=== PATIENT | male | born 1935 | race Hispanic/Latino ===

== ENCOUNTER 2021-06-10 06:11 | Observation (INO) | payer MEDICARE ==
[2021-06-03 13:22] LABS: Hematocrit 42.3 % (35.5-45.6); Hemoglobin 14.2 gm/dl (11.8-15.2); Mean Corpuscular HGB Conc 34 % (32-34); Mean Corpuscular Volume 99 fl (84-94); Platelet Count 160 K/mm3 (140-440); Red Blood Count 4.28 M/mm3 (3.65-5.03); Red Cell Distribution Width 14.5 % (13.2-15.2)
[2021-06-03 13:34] LABS: Alanine Aminotransferase 34 units/L (7-56); BUN/Creatinine Ratio 17; Blood Urea Nitrogen 17 mg/dL (9-20); Hemolysis Index 11
--- NOTE | 2021-06-03 14:27 | Anesthesia Consultation ---
Anesthesia Consult and Med Hx Date of service: 06/10/21 - Airway Anesthetic Teeth Evaluation: Dentures (upper and lower) ROM Head & Neck: Adequate Mental/Hyoid Distance: Adequate Mallampati Class: Class II Intubation Access Assessment: Probably Good - Pulmonary Exam CTA: Yes - Cardiac Exam Cardiac Exam: No Murmur (irregular rhythm) - Pre-Operative Health Status ASA Pre-Surgery Classification: ASA3 Proposed Anesthetic Plan: General - Pulmonary Hx Smoking: No Hx Respiratory Symptoms: No Hx Sleep Apnea: No ([facility] PRE SCREEN HIGH RISK) - Cardiovascular System Hx Hypertension: Yes Hx Heart Attack/AMI: No Hx Percutaneous Transluminal Coronary Angioplasty (PTCA): No Hx Cardia Arrhythmia: Yes (a-fib on coumadin (will hold after 06/04/21)) Hx Pacemaker: Yes Hx Internal Defibrillator: No - Central Nervous System CVA: No - Endocrine Hx Renal Disease: No Hx Liver Disease: No (remote hx hepatitis; resolved) Hx Insulin Dependent Diabetes: No Hx Non-Insulin Dependent Diabetes: No Hx Thyroid Disease: No - Other Systems Hx Cancer: Yes (prior hx prostate ca) - Additional Comments Anesthesia Medical History Comments: No hx anesthetic complications. Had preop c ardiology eval and pacemaker interrogation recently. Records requested.
[~2021-06-10 06:11] MED LIST: ACETAMINOPHEN 325 MG TAB ONE; ACETAMINOPHEN 500 MG TAB PO SCH; GENTAMICIN/NS 80 MG/100 ML 100 ML IV SCH; SODIUM CHLORIDE 0.9% 1000 ML 1,000 ML IV SCH; VANCOMYCIN 1,250 MG in SODIUM CHLORIDE 0.9% 250ML 250 ML IV NR
[2021-06-10] MEDS ORDERED: ACETAMINOPHEN 325 MG TAB PO ONE (07:00)
[2021-06-10] MEDS ORDERED: MIDAZOLAM 2 MG/2 ML INJ IV PRN (07:00)
[2021-06-10 07:11] LABS: INR 1.02 (0.87-1.13); Partial Thromboplastin Time 26.4 Sec. (24.2-36.6)
[2021-06-10 07:12] LABS: Calcium 8.8 mg/dL (8.4-10.2)
[2021-06-10] MEDS ORDERED: ONDANSETRON 4 MG/2 ML INJ IV PRN ×2 (07:34→10:16)
[2021-06-10] MEDS ORDERED: HYDROmorphone 1 MG/1 ML INJ IV PRN ×2 (07:34)
--- NOTE | 2021-06-10 07:34 | Anesthesia Day of Surgery ---
Anesthesia Day of Surgery - Day of Surgery Patient Examined: Yes Patient H&P Reviewed: Yes Patient is NPO: Yes
[2021-06-10] MEDS ORDERED: LIDOCAINE MPF (2%) 20 MG/1 ML VIAL 5 ML ONE (07:36)
[2021-06-10] MEDS ORDERED: propofoL 200 MG/20 ML VIAL IV ONE (07:38)
[2021-06-10] MEDS ORDERED: BUPIVACAINE/PF (0.5%) 5 MG/1 ML 30 ML VIAL INFILTRATI ONE (07:46)
[2021-06-10] MEDS ORDERED: SODIUM CHLORIDE P/F VIAL 10 ML 20 ML ONE (07:46)
[2021-06-10] MEDS ORDERED: SODIUM CHLORIDE 0.9% 500 ML 500 ML ONE (07:47)
[2021-06-10] MEDS ORDERED: rifAMPin 600 MG VIAL ONE (07:47)
[2021-06-10] MEDS ORDERED: GENTAMICIN 40 MG/ML VIAL 2 ML ONE (07:47)
[2021-06-10] MEDS ORDERED: NEOMY 40 MG/POLYMYXIN B 200,000 UNITS/ML (GU) AMPULE IR ONE ×3 (07:47→09:49)
[2021-06-10] MEDS ORDERED: SODIUM CHLORIDE P/F VIAL 10 ML 10 ML ONE (07:48)
[2021-06-10] MEDS ORDERED: SODIUM CHLORIDE 0.9% 50 ML ONE (07:51)
[2021-06-10] MEDS ORDERED: VANCOMYCIN/NS 1 GM/250 ML 1 GM/250 ML BAG IV SCH (08:00)
[2021-06-10] MEDS ORDERED: PHENYLEPHRINE/NS 1,000 MCG/10 ML SYRINGE (OR USE) IV ONE (08:39)
[2021-06-10] MEDS ORDERED: dexAMETHasone 20 MG/5 ML VIAL ONE (08:43)
[2021-06-10] MEDS ORDERED: ePHEDrine SULFATE 50 MG/1 ML INJ ONE (09:09)
[2021-06-10] MEDS ORDERED: BUPIVACAINE/PF (0.5%) 5 MG/1 ML 10 ML VIAL INFILTRATI ONE (09:50)
[2021-06-10] MEDS ORDERED: SODIUM CHLORIDE 0.9% P/F 10 ML VIAL INFILTRATI ONE (09:50)
[2021-06-10] MEDS ORDERED: SODIUM CHLORIDE 0.9% IRR 1,500 ML BOTTLE IR ONE (09:50)
[2021-06-10] MEDS ORDERED: GENTAMICIN 40 MG/ML VIAL 2 ML IV ONE (09:51)
[2021-06-10] MEDS ORDERED: SODIUM CHLORIDE 0.9% 500 ML IVPB IV ONE (09:53)
[2021-06-10] MEDS ORDERED: rifAMPin 600 MG VIAL IV ONE (09:54)
[2021-06-10] MEDS ORDERED: ACETAMINOPHEN 325 MG TAB PO PRN (10:16)
[2021-06-10] MEDS ORDERED: MORPHINE 4 MG/1 ML INJ IV PRN (10:16)
[2021-06-10] MEDS ORDERED: NALOXONE 0.4 MG/1 ML INJ IV PRN (10:16)
--- NOTE | 2021-06-10 10:16 | Short Stay Summary ---
Short Stay Documentation Date of service: 06/10/21 - History H&P: obtained from office - Allergies and Medications Current Medications: Allergies No Known Allergies Allergy (Verified 06/02/21 17:01) Home Medications Medication Instructions Recorded Confirmed Last Taken Type Lovastatin [Altoprev] 40 mg PO DAILY 06/03/21 06/03/21 Unknown History Metoprolol [Lopressor] 100 mg PO TID 06/03/21 06/03/21 Unknown History Warfarin [Coumadin] 5 mg PO QDAY 06/03/21 06/03/21 Unknown History Active Medications Hydromorphone HCl (Hydromorphone 1 Mg/1 Ml Inj) 0.25 mg IV Q10MIN PRN PRN Reason: Pain, Moderate (4-6) Stop: 06/10/21 23:00 Hydromorphone HCl (Hydromorphone 1 Mg/1 Ml Inj) 0.5 mg IV Q10MIN PRN PRN Reason: Pain , Severe (7-10) Stop: 06/10/21 23:00 Sodium Chloride (Nacl 0.9% 1000 Ml) 1,000 mls @ 100 mls/hr IV DIRECT QUIANA Stop: 06/10/21 23:59 Last Admin: 06/10/21 07:00 Dose: 100 mls/hr Documented by: Gentamicin Sulfate/Sodium Chloride (Gentamicin/Ns 80 Mg/100 Ml) 100 mls @ 200 mls/hr IV PREOP QUIANA Stop: 06/10/21 20:00 Vancomycin HCl 1,250 mg/ (Sodium Chloride) 275 mls @ 166.667 mls/hr IV PREOP NR Stop: 06/10/21 20:00 Midazolam HCl (Midazolam 2 Mg/2 Ml Inj) 1 mg IV PREOP PRN PRN Reason: Anxiety Stop: 06/10/21 23:00 Last Admin: 06/10/21 07:37 Dose: 1 mg Documented by: Ondansetron HCl (Ondansetron 4 Mg/2 Ml Inj) 4 mg IV ONCE PRN PRN Reason: Nausea And Vomiting Stop: 06/10/21 12:00 - Brief post op/procedure progress note Date of procedure: 06/10/21 Pre-op diagnosis: impotence Post-op diagnosis: same Procedure: ipp (coloplast) Anesthesia: GETA Surgeon: LORENA COUCH Estimated blood loss: minimal Specimen disposition: to lab (scrotal skin) Condition: stable - Hospital course Hospital course: pt has bactrim,norco, post op info at home 1. Remove Shepard catheter 2. Remove dressing 3. Discharge home today - Disposition Condition at discharge: Stable Disposition: 01 HOME / SELF CARE / HOMELESS Short Stay Discharge Plan Follow up with: JORGE ALBERTO BATEMAN MD [Primary Care Provider] - 7 Days
--- NOTE | 2021-06-10 10:59 | Operative Report ---
DATE OF SURGERY: 06/10/2021 PREOPERATIVE DIAGNOSIS: Erectile dysfunction. POSTOPERATIVE DIAGNOSIS: Erectile dysfunction. PROCEDURES: Cystoscopy, insertion of inflatable penile prosthesis (Coloplast 22 cm implant), scrotoplasty, pharmacologic injection into the corporal bodies. SURGEON: Sumanth Patel MD LATHE OPERATOR CONTACT LENS: Tosin Feliz. ANESTHESIA: General. ESTIMATED BLOOD LOSS: Minimal. FLUIDS: Crystalloid. COMPLICATIONS: No complications. INDICATIONS: This is an 85-year-old gentleman known to our service with a history of erectile dysfunction and prostate cancer. I had a long discussion regarding treatment options. The patient reviewed all options, wants to proceed with surgical intervention. He received his cardiac clearance from Dr. Aguayo, presents now for surgical intervention. DESCRIPTION OF PROCEDURE: The patient was taken to the operative suite, placed in the supine position. After adequate general anesthesia, prepped and draped in a sterile fashion. Attempt at Shepard catheter initially was unsuccessful due to a blockage. Flexible cystoscopy was performed. The patient was noted to have a high riding bladder neck. I was able to negotiate a 0.035 Glidewire followed by a 16-Arabic [place] tip catheter over the prostate without difficulty. Next, attention was taken to the corporal bodies. A 60 mL of dilute 0.25% Marcaine was injected. No plaque could be appreciated. No curvature. A transscrotal incision was made with a Bovie. Sharp dissection was taken down to the corporal bodies, 2-0 Vicryl stay sutures were placed in the corporal bodies. Corporotomies were made bilaterally. Gentle dilation with a measuring tool was performed. Measurements revealed a total of 20 cm. Therefore, a 20 cm Coloplast Titan was prepped, 125 mL reservoir was prepped and placed in the retropubic space via the right external ring, 100 mL of fluid was placed in the reservoir. No leak could be appreciated. Cylinders were prepped, placed in the corporal bodies with the aid of the Ulises needle, excellent seating, corporotomies were closed with 2-0 Vicryl in a running fashion. Insufflation revealed an excellent cosmetic appearance. There was cracking of the corporal bodies consistent with no recent erections. Pump and reservoir was connected with the quick click connection system. Throughout the procedure, copious irrigation was performed. Adequate hemostasis was achieved. Pump was placed in the dependent portion of the scrotum. A 2-0 Vicryl pursestring suture was used to secure there as well as a 2-0 Vicryl to close the dartos layer. Redundant scrotal skin was excised and sent for routine pathologic evaluation. Scrotal skin was closed with a 2-0 Vicryl in interrupted fashion. Collodion, mummy wrap was placed. The patient tolerated the procedure well, was extubated and taken to recovery room. He will be observed overnight. Tosin Feliz was present at the bedside to assist throughout the procedure. TID: [id number] RECEIPT: [id number] AYAD/JUNIOR
[2021-06-10] MEDS ORDERED: SODIUM CHLORIDE 0.45% 1000 ML 1,000 ML IV SCH (11:00)
--- NOTE | 2021-06-10 14:24 | Consultation ---
History of Present Illness - Reason for Consult Consult date: 06/10/21 Atrial fibrillation with RVR Requesting physician: LORENA COUCH - History of Present Illness Patient is an 85-year-old male with past medical history of atrial fibrillation, hyperlipidemia who presents to the hospital for Coloplast IPP which was done with no complications and currently resting in the room postop. I was asked to see the patient for management of atrial fibrillation while the patient was in the hospital. Apart from surgical incision pain he denies any other complaints. He denies shortness of breath nausea vomiting or diarrhea he denies any dizziness. Reports compliance to his medication for which he says that he takes warfarin and metoprolol at home. Past History Past Medical History: atrial fib, hyperlipidemia Past Surgical History: Other Social history: lives with family Family history: no significant family history Medications and Allergies Allergies Allergy/AdvReac Type Severity Reaction Status Date / Time No Known Allergies Allergy Verified 06/02/21 17:01 Home Medications Medication Instructions Recorded Confirmed Last Taken Type Lovastatin [Altoprev] 40 mg PO DAILY 06/03/21 06/03/21 Unknown History Metoprolol [Lopressor] 100 mg PO TID 06/03/21 06/03/21 Unknown History Warfarin [Coumadin] 5 mg PO QDAY 06/03/21 06/03/21 Unknown History Active Meds: Active Medications Acetaminophen (Acetaminophen 325 Mg Tab) 650 mg PO Q4H PRN PRN Reason: Pain MILD(1-3)/Fever >100.5/WASHBURN Hydrocodone Bitart/Acetaminophen (Hydrocodone/Acetaminophen 5-325 Mg Tab) 2 each PO Q6H PRN PRN Reason: Pain, Moderate (4-6) Atorvastatin Calcium (Atorvastatin 10 Mg Tab) 10 mg PO QHS QUIANA Hydromorphone HCl (Hydromorphone 1 Mg/1 Ml Inj) 0.25 mg IV Q10MIN PRN PRN Reason: Pain, Moderate (4-6) Stop: 06/10/21 23:00 Hydromorphone HCl (Hydromorphone 1 Mg/1 Ml Inj) 0.5 mg IV Q10MIN PRN PRN Reason: Pain , Severe (7-10) Stop: 06/10/21 23:00 Sodium Chloride (Nacl 0.9% 1000 Ml) 1,000 mls @ 100 mls/hr IV DIRECT QUIANA Stop: 06/10/21 23:59 Last Admin: 06/10/21 07:00 Dose: 100 mls/hr Documented by: Gentamicin Sulfate/Sodium Chloride (Gentamicin/Ns 80 Mg/100 Ml) 100 mls @ 200 mls/hr IV PREOP QUIANA Stop: 06/10/21 20:00 Vancomycin HCl 1,250 mg/ (Sodium Chloride) 275 mls @ 166.667 mls/hr IV PREOP NR Stop: 06/10/21 20:00 Sodium Chloride (Nacl 0.45% 1000 Ml) 1,000 mls @ 75 mls/hr IV DIRECT QUIANA Cefazolin Sodium (Ancef/Ns 1 Gm/50 Ml) 1 gm in 50 mls @ 100 mls/hr IV Q8H QUIANA; Protocol Metoprolol Tartrate (Metoprolol Tartrate 100 Mg Tab) 100 mg PO TID QUIANA Midazolam HCl (Midazolam 2 Mg/2 Ml Inj) 1 mg IV PREOP PRN PRN Reason: Anxiety Stop: 06/10/21 23:00 Last Admin: 06/10/21 07:37 Dose: 1 mg Documented by: Morphine Sulfate (Morphine 4 Mg/1 Ml Inj) 4 mg IV Q4H PRN PRN Reason: Pain , Severe (7-10) Naloxone HCl (Naloxone 0.4 Mg/1 Ml Inj) 0.1 mg IV Q2MIN PRN PRN Reason: Res Rate </= 8 or 02 SAT < 92% Ondansetron HCl (Ondansetron 4 Mg/2 Ml Inj) 4 mg IV Q8H PRN PRN Reason: Nausea And Vomiting Sodium Chloride (Sodium Chloride 0.9% 10 Ml Flush Syringe) 10 ml IV BID QUIANA Sodium Chloride (Sodium Chloride 0.9% 10 Ml Flush Syringe) 10 ml IV PRN PRN PRN Reason: LINE FLUSH Zolpidem Tartrate (Zolpidem 5 Mg Tab) 5 mg PO QHS PRN PRN Reason: Insomnia Review of Systems All systems: negative Cardiovascular: no chest pain, no orthopnea, no palpitations, no rapid/irregular heart beat, no edema Exam - Physical Exam Narrative exam: VITAL SIGNS: Reviewed. GENERAL: The patient appears normally developed, Vital signs as documented. HEAD: No signs of head trauma. EYES: Pupils are equal. Extraocular motions intact. EARS: Hearing grossly intact. MOUTH: Oropharynx is normal. NECK: No adenopathy, no JVD. CHEST: Chest with clear breath sounds bilaterally. No wheezes, rales, or rhonchi. CARDIAC: Regular rate and rhythm. S1 and S2, without murmurs, gallops, or rubs. VASCULAR: No Edema. Peripheral pulses normal and equal in all extremities. ABDOMEN: Soft, non tender and non distended. No rebound or guarding, and no masses palpated. Bowel Sounds normal. MUSCULOSKELETAL: Good range of motion of all major joints. Extremities without clubbing, cyanosis or edema. NEUROLOGIC EXAM: Alert and oriented x 3 No focal sensory or strength deficits. Speech normal. Follows commands. PSYCHIATRIC: Mood normal. SKIN: detail exam as documented in skin assessment - Constitutional Vitals: Temp Pulse Resp BP Pulse Ox 97.6 F 88 18 154/86 98 06/10/21 12:30 06/10/21 12:30 06/10/21 12:30 06/10/21 12:30 06/10/21 12:30 Results - Labs CBC & Chem 7: 06/03/21 00:01 06/10/21 06:45 Labs: Abnormal lab results 06/10/21 Range/Units 06:45 BUN 21 H (9-20) mg/dL Glucose 114 H (75-100) mg/dL Assessment and Plan Patient is an 85-year-old male with past medical history of atrial fibrillation, hyperlipidemia who presents to the hospital for Coloplast IPP which was done with no complications and currently resting in the room postop. I was asked to see the patient for management of atrial fibrillation while the patient was in the hospital. Apart from surgical incision pain he denies any other complaints. He denies shortness of breath nausea vomiting or diarrhea he denies any dizziness. Reports compliance to his medication for which he says that he takes warfarin and metoprolol at home. Status post IPP (Coloplast) Atrial fibrillation Hyperlipidemia Plan Continue current medication including rate control medications. Coumadin currently held restart when okay with surgery. If going to be longer than 3 days may need bridge therapy with heparin drip while in-house. Anticipate discharge in a.m. as urology has already instituted including antibiotics. No objection from my standpoint for discharge. Thank you for allowing us take part in the care of your patient information become available more therapeutic or diagnostic measures need to be implemented
[2021-06-10] MEDS: ceFAZolin/NS 1 GM/50 ML 1 GM/50 ML BAG IV SCH ×2 (14:26→21:42)
[2021-06-10 14:58] LABS: BUN/Creatinine Ratio 17; Blood Urea Nitrogen 19 mg/dL (9-20); Calcium 8.4 mg/dL (8.4-10.2); Hemolysis Index 35
--- NOTE | 2021-06-10 15:37 | Post Anesthesia Evaluation ---
- Post Anesthesia Evaluation Patient Participated: Yes Airway Patent: Yes Stable Respiratory Function: Yes Nausea/Vomiting: No Temp > 96.8F: Yes Pain Manageable: Yes Adequeate Hydration: Yes Anesthesia Complications: No Block Receding Appropriately: Not Applicable Patient on Ventilator: No
[2021-06-10] MEDS: METOPROLOL TARTRATE 100 MG TAB PO SCH ×2 (18:35→21:43)
[2021-06-10] MEDS: HYDROcodone/ACETAMINOPHEN 5-325 MG TAB PO PRN (21:42)
[2021-06-10] MEDS ORDERED: ZOLPIDEM 5 MG TAB PO PRN (22:00)
[2021-06-11 04:47] VITALS: BP 141/88
[2021-06-11] MEDS: HYDROcodone/ACETAMINOPHEN 5-325 MG TAB PO PRN (05:40)
[2021-06-11] MEDS: ceFAZolin/NS 1 GM/50 ML 1 GM/50 ML BAG IV SCH (05:44)
--- NOTE | 2021-06-11 07:33 | Progress Note ---
Assessment and Plan Assessment and plan: Patient is an 85-year-old male with past medical history of atrial fibrillation, hyperlipidemia who presents to the hospital for Coloplast IPP which was done with no complications and currently resting in the room postop. I was asked to see the patient for management of atrial fibrillation while the patient was in the hospital. Apart from surgical incision pain he denies any other complaints. He denies shortness of breath nausea vomiting or diarrhea he denies any dizziness. Reports compliance to his medication for which he says that he takes warfarin and metoprolol at home. Status post IPP (Coloplast) Atrial fibrillation Hyperlipidemia Plan 06/11: Clinical stable for discharge. Shepard management per Urologist Continue current medication including rate control medications. Coumadin currently held restart when okay with surgery. If going to be longer than 3 days may need bridge therapy with heparin drip while in-house. Anticipate discharge in a.m. as urology has already instituted including antibiotics. No objection from my standpoint for discharge. Thank you for allowing us take part in the care of your patient information become available more therapeutic or diagnostic measures need to be implemented History Interval history: Patient seen and examined, ambulating, nikky is out Hospitalist Physical - Physical exam Narrative exam: VITAL SIGNS: Reviewed. GENERAL: The patient appears normally developed, Vital signs as documented. HEAD: No signs of head trauma. EYES: Pupils are equal. Extraocular motions intact. EARS: Hearing grossly intact. MOUTH: Oropharynx is normal. NECK: No adenopathy, no JVD. CHEST: Chest with clear breath sounds bilaterally. No wheezes, rales, or rhonchi. CARDIAC: Regular rate and rhythm. S1 and S2, without murmurs, gallops, or rubs. VASCULAR: No Edema. Peripheral pulses normal and equal in all extremities. ABDOMEN: Soft, non tender and non distended. No rebound or guarding, and no masses palpated. Bowel Sounds normal. MUSCULOSKELETAL: Good range of motion of all major joints. Extremities without clubbing, cyanosis or edema. NEUROLOGIC EXAM: Alert and oriented x 3 No focal sensory or strength de ficits. Speech normal. Follows commands. PSYCHIATRIC: Mood normal. SKIN: detail exam as documented in skin assessment - Constitutional Vitals: Temp Pulse Resp BP Pulse Ox 98.6 F 86 18 141/88 98 06/11/21 04:46 06/11/21 04:46 06/11/21 04:46 06/11/21 04:46 06/11/21 04:46 Results - Labs CBC & Chem 7: 06/03/21 00:01 06/10/21 14:29 Labs: Laboratory Last Values WBC 4.8 K/mm3 (4.5-11.0) 06/03/21 00:01 RBC 4.28 M/mm3 (3.65-5.03) 06/03/21 00:01 Hgb 14.2 gm/dl (11.8-15.2) 06/03/21 00:01 Hct 42.3 % (35.5-45.6) 06/03/21 00:01 MCV 99 fl (84-94) H 06/03/21 00:01 MCH 33 pg (28-32) H 06/03/21 00:01 MCHC 34 % (32-34) 06/03/21 00:01 RDW 14.5 % (13.2-15.2) 06/03/21 00:01 Plt Count 160 K/mm3 (140-440) 06/03/21 00:01 PT 14.5 Sec. (12.2-14.9) 06/10/21 06:45 INR 1.02 (0.87-1.13) 06/10/21 06:45 APTT 26.4 Sec. (24.2-36.6) 06/10/21 06:45 Sodium 139 mmol/L (137-145) 06/10/21 14:29 Potassium 4.7 mmol/L (3.6-5.0) 06/10/21 14:29 Chloride 105.8 mmol/L (98-107) 06/10/21 14:29 Carbon Dioxide 20 mmol/L (22-30) L 06/10/21 14:29 Anion Gap 18 mmol/L 06/10/21 14:29 BUN 19 mg/dL (9-20) 06/10/21 14:29 Creatinine 1.1 mg/dL (0.8-1.3) 06/10/21 14:29 Estimated GFR > 60 ml/min 06/10/21 14:29 BUN/Creatinine Ratio 17 % 06/10/21 14:29 Glucose 189 mg/dL (75-100) H 06/10/21 14:29 Calcium 8.4 mg/dL (8.4-10.2) 06/10/21 14:29 Total Bilirubin 0.60 mg/dL (0.1-1.2) 06/03/21 00:01 AST 30 units/L (5-40) 06/03/21 00:01 ALT 34 units/L (7-56) 06/03/21 00:01 Alkaline Phosphatase 54 units/L (35-129) 06/03/21 00:01 Total Protein 6.9 g/dL (6.3-8.2) 06/03/21 00:01 Albumin 4.0 g/dL (3.9-5) 06/03/21 00:01 Albumin/Globulin Ratio 1.4 % 06/03/21 00:01 Coronavirus (PCR) Negative (Negative) 06/03/21 12:35 Shepard/IV: Voiding Method Urinal Active Medications - Current Medications Current Medications: Generic Name Dose Route Start Last Admin Trade Name Freq PRN Reason Stop Dose Admin Acetaminophen 650 mg 06/10/21 10:16 Acetaminophen 325 Mg Tab PO Q4H PRN Pain MILD(1-3)/Fever >100.5/[place]ASHBURN Hydrocodone Bitart/Acetaminophen 2 each 06/10/21 10:16 06/11/21 05:40 Hydrocodone/Acetaminophen 5-325 Mg Tab PO 2 each Q6H PRN Administration Pain, Moderate (4-6) Atorvastatin Calcium 10 mg 06/10/21 22:00 06/10/21 21:43 Atorvastatin 10 Mg Tab PO 10 mg QHS QUIANA Administration Sodium Chloride 1,000 mls @ 75 mls/hr 06/10/21 11:00 06/10/21 23:30 Nacl 0.45% 1000 Ml IV 75 mls/hr DIRECT QUIANA Administration Cefazolin Sodium 1 gm in 50 mls @ 100 mls/hr 06/10/21 14:00 06/11/21 05:44 Ancef/Ns 1 Gm/50 Ml IV 100 mls/hr Q8H QUIANA Administration Protocol Metoprolol Tartrate 100 mg 06/10/21 14:00 06/10/21 21:43 Metoprolol Tartrate 100 Mg Tab PO Not Given TID QUIANA Morphine Sulfate 4 mg 06/10/21 10:16 Morphine 4 Mg/1 Ml Inj IV Q4H PRN Pain , Severe (7-10) Naloxone HCl 0.1 mg 06/10/21 10:16 Naloxone 0.4 Mg/1 Ml Inj IV Q2MIN PRN Res Rate </= 8 or 02 SAT < 92% Ondansetron HCl 4 mg 06/10/21 10:16 Ondansetron 4 Mg/2 Ml Inj IV Q8H PRN Nausea And Vomiting Sodium Chloride 10 ml 06/10/21 22:00 06/10/21 21:43 Sodium Chloride 0.9% 10 Ml Flush Syringe IV 10 ml BID QUIANA Administration Sodium Chloride 10 ml 06/10/21 10:16 Sodium Chloride 0.9% 10 Ml Flush Syringe IV PRN PRN LINE FLUSH Zolpidem Tartrate 5 mg 06/10/21 22:00 Zolpidem 5 Mg Tab PO QHS PRN Insomnia
--- NOTE | 2021-06-11 08:15 | Progress Note ---
Assessment and Plan s/p IPP doing well - Patient Problems (1) Erectile dysfunction due to arterial insufficiency Current Visit: Yes Status: Acute Plan to address problem: s/p IPP doing well 1. Remove Shepard catheter 2. Remove dressing 3. Discharge home today Subjective Date of service: 06/11/21 Principal diagnosis: s/p IPP Interval history: POD # 1 s/p IPP doing well with no specific complaints, expected pain Objective - Constitutional Vitals: Vital Signs - 12hr 06/10/21 06/10/21 06/11/21 21:38 21:45 04:46 Temperature 99.1 F 98.6 F Pulse Rate 89 86 Respiratory 20 18 Rate Blood Pressure 114/61 141/88 O2 Sat by Pulse 94 94 98 Oximetry General appearance: Present: no acute distress, well-nourished - EENT Eyes: PERRL, EOM intact ENT: hearing intact, clear oral mucosa Ears: bilateral: normal - Neck Neck: supple, normal ROM - Respiratory Respiratory: bilateral: CTA - Breasts Breasts: deferred - Cardiovascular Rhythm: regular Extremities: no ischemia, No edema, Full ROM - Gastrointestinal General gastrointestinal: Present: soft, non-tender Rectal Exam: deferred - Genitourinary Male genitourinary: tender - Integumentary Integumentary: clear, warm, dry - Musculoskeletal Musculoskeletal: strength equal bilaterally - Neurologic Neurologic: CNII-XII intact, moves all extremities - Psychiatric Psychiatric: appropriate mood/affect, intact judgment & insight, memory intact, cooperative - Labs CBC & Chem 7: 06/03/21 00:01 06/10/21 14:29 Labs: Abnormal lab results 06/10/21 Range/Units 14:29 Carbon Dioxide 20 L (22-30) mmol/L Glucose 189 H (75-100) mg/dL Medications & Allergies - Medications Allergies/Adverse Reactions: Allergies No Known Allergies Allergy (Verified 06/02/21 17:01) Home Medications: Home Medications Medication Instructions Recorded Confirmed Last Taken Type Lovastatin [Altoprev] 40 mg PO DAILY 06/03/21 06/03/21 Unknown History Metoprolol [Lopressor] 100 mg PO TID 06/03/21 06/03/21 Unknown History Warfarin [Coumadin] 5 mg PO QDAY 06/03/21 06/03/21 Unknown History Active Medications: Generic Name Dose Route Start Last Admin Trade Name Freq PRN Reason Stop Dose Admin Acetaminophen 650 mg 06/10/21 10:16 Acetaminophen 325 Mg Tab PO Q4H PRN Pain MILD(1-3)/Fever >100.5/[place]BURN Hydrocodone Bitart/Acetaminophen 2 each 06/10/21 10:16 06/11/21 05:40 Hydrocodone/Acetaminophen 5-325 Mg Tab PO 2 each Q6H PRN Administration Pain, Moderate (4-6) Atorvastatin Calcium 10 mg 06/10/21 22:00 06/10/21 21:43 Atorvastatin 10 Mg Tab PO 10 mg QHS QUIANA Administration Sodium Chloride 1,000 mls @ 75 mls/hr 06/10/21 11:00 06/10/21 23:30 Nacl 0.45% 1000 Ml IV 75 mls/hr DIRECT QUIANA Administration Cefazolin Sodium 1 gm in 50 mls @ 100 mls/hr 06/10/21 14:00 06/11/21 05:44 Ancef/Ns 1 Gm/50 Ml IV 100 mls/hr Q8H QUIANA Administration Protocol Metoprolol Tartrate 100 mg 06/10/21 14:00 06/10/21 21:43 Metoprolol Tartrate 100 Mg Tab PO Not Given TID QUIANA Morphine Sulfate 4 mg 06/10/21 10:16 Morphine 4 Mg/1 Ml Inj IV Q4H PRN Pain , Severe (7-10) Naloxone HCl 0.1 mg 06/10/21 10:16 Naloxone 0.4 Mg/1 Ml Inj IV Q2MIN PRN Res Rate </= 8 or 02 SAT < 92% Ondansetron HCl 4 mg 06/10/21 10:16 Ondansetron 4 Mg/2 Ml Inj IV Q8H PRN Nausea And Vomiting Sodium Chloride 10 ml 06/10/21 22:00 06/10/21 21:43 Sodium Chloride 0.9% 10 Ml Flush Syringe IV 10 ml BID QUIANA Administration Sodium Chloride 10 ml 06/10/21 10:16 Sodium Chloride 0.9% 10 Ml Flush Syringe IV PRN PRN LINE FLUSH Zolpidem Tartrate 5 mg 06/10/21 22:00 Zolpidem 5 Mg Tab PO QHS PRN Insomnia
--- NOTE | 2021-06-11 09:16 | Post Anesthesia Evaluation ---
- Post Anesthesia Evaluation Patient Participated: Yes Airway Patent: Yes Stable Respiratory Function: Yes Nausea/Vomiting: No Temp > 96.8F: Yes Pain Manageable: Yes Adequeate Hydration: Yes Anesthesia Complications: No Block Receding Appropriately: Not Applicable Patient on Ventilator: No Other Comments: patient is stable, ambulates, prepares for discharge
[2021-06-11] MEDS ORDERED: NON-FORMULARY EACH (Lovastatin [Altoprev] 40 MG Tab.Er.24h) PO SCH (10:00)
== END 2021-06-11 12:45 | disposition home or self-care (01) ==
LOC: OR 06:11 → 3A 10:16
PROVIDERS: ADMIT Urology; ATTEND Urology
DX: N52.01 Erectile dysfunction due to arterial insufficiency (principal); Z20.822 Contact with and (suspected) exposure to COVID-19; C61 Malignant neoplasm of prostate; I48.91 Unspecified atrial fibrillation; E78.5 Hyperlipidemia, unspecified; I10 Essential (primary) hypertension; I34.0 Nonrheumatic mitral (valve) insufficiency; N50.89 Other specified disorders of the male genital organs; Z79.01 Long term (current) use of anticoagulants; Z95.0 Presence of cardiac pacemaker; Z86.718 Personal history of other venous thrombosis and embolism
CPT/HCPCS: 36415; 54401; 55175; 80048; 80053; 85027; 85610; 85730; 88302; 96365; 96366; C1813; G0378; J0690; J1100; J1170; J1580; J2250; J2370; J2405; J2704; J3370; J3490; J7030; J7040; J7050; U0003; 88305; J7120; Q0162

== ENCOUNTER 2022-03-16 12:02 | Outpatient (CLI) | payer MEDICARE ==
--- NOTE | 2022-03-16 13:59 | Cat Scan Report ---
CT ABDOMEN AND PELVIS WITHOUT CONTRAST HISTORY: C61. Prostate cancer. COMPARISON: None. TECHNIQUE: Axial CT images were obtained through the abdomen and pelvis without IV contrast. Sagittal and coronal reformatted images. All CT scans at this location are performed using CT dose reduction for ALARA by means of automated exposure control. FINDINGS: CT ABDOMEN: Lung Bases: The visualized lung bases are clear. Borderline to mild cardiomegaly is evident. Pacemake r device is partially imaged. Liver: No significant abnormality. Biliary: No significant abnormality. Spleen: No significant abnormality. Unenlarged. Pancreas: There is mild diffuse fatty atrophy. No mass or inflammation. Adrenals: No significant abnormality. Kidneys: No significant abnormality. Lymphatics: No lymphadenopathy. Vasculature: Mild atherosclerotic disease without acute abnormality. No aneurysm. Bowel/Peritoneum: No significant abnormality. No free air. No free fluid. Mild sigmoid diverticulosis is noted. Surgical changes are noted in the mid to distal small bowel, correlate with history. CT PELVIS: : The bladder, distal ureters and prostate gland are unremarkable. Penile pump is noted without acu te abnormality. Osseous Structures: No suspicious bony lesion or fracture is identified. Severe degenerative changes are noted in the lower lumbar spine. Additional Findings: None IMPRESSION: No evidence for metastatic disease to the abdomen or pelvis. Signer Name: Eric Ridley Jr, MD Signed: 03/16/2022 1:55 PM Workstation Name: [id number]
== END 2022-03-16 12:03 | disposition home or self-care (01) ==
LOC: CT 12:02
PROVIDERS: ATTEND Urology
DX: C61 Malignant neoplasm of prostate (principal); I51.7 Cardiomegaly; I70.0 Atherosclerosis of aorta; K57.30 Diverticulosis of large intestine without perforation or abscess without bleeding; M47.816 Spondylosis without myelopathy or radiculopathy, lumbar region
CPT/HCPCS: 74176